=== PATIENT | female | born 1960 | race Hispanic/Latino ===

== ENCOUNTER → 2020-02-01 | Outpatient (CLI) | payer MEDICARE, OTHER ==
[~2020-02-01] MED LIST: IOHEXOL-350 75 ML VIAL IV ONE
== END | disposition home or self-care (01) ==
LOC: RAH 09:59
PROVIDERS: ATTEND Family Medicine
DX: K44.9 Diaphragmatic hernia without obstruction or gangrene (principal); R19.09 Other intra-abdominal and pelvic swelling, mass and lump; R59.0 Localized enlarged lymph nodes
CPT/HCPCS: 74177; Q9967